=== PATIENT | female | born 1970 | race Caucasian/White ===

== ENCOUNTER → 2017-04-22 | Outpatient (CLI) | payer MEDICARE, MEDICAID ==
[~2017-04-22] MED LIST: B12INJ IM; CELEXA10 MG PO; ELIQUIS2.5 MG PO; FOLBIC RF TABL1 EACH PO; HYDROCHLOROTH12.5 M1 PO; HYDROCHLOROTHIA25 M2 PO; PERCOCET PO; ROXICODONE5 M2 PO; SENNA S TABLET1 EACH PO; SENNA8.6 MG PO; SINGULAIR 10 MG10 M1 PO; SYSTANE 0.3-0.1 EACH OPHTHALMIC; SYSTANE NIGHTT3.5 GM OPHTHALMIC; TRAMADOL HCL50 MG PO; VALIUM5 MG PO; VICODIN 5-3001 EACH PO; XANAX1 MG PO; ZYRTEC10 M5 PO
== END ==
LOC: M.LAB 15:42
DX: M25.452 Effusion, left hip (principal)

== ENCOUNTER → 2017-05-06 | Outpatient (CLI) | payer MEDICARE, MEDICAID | LOC: M.MRI 15:44 | DX: M25.852 Other specified joint disorders, left hip (principal); M12.852 Other specific arthropathies, not elsewhere classified, left hip ==

== ENCOUNTER → 2017-05-24 | Outpatient (CLI) | payer MEDICARE, MEDICAID ==
[2017-05-24 11:13] LABS: SOURCE LEFT HIP ASPIRATE
[2017-05-24 11:39] LABS: BF RBC 6184 /mm3; TOTAL CELL COUNT 2829 /mm3
[2017-05-24 11:40] LABS: CLARITY CLOUDY; COLOR AMBER; TOTAL VOLUME 10 ml
[2017-05-24 12:32] LABS: BF LYMPHOCYTES 79 %; BF POLYS 21 %
[2017-05-24 12:46] LABS: SOURCE ASCITES
[2017-05-25 13:08] LABS: BODY FLUID PROTEIN 3.2 g/dL (())
== END | disposition home or self-care (01) ==
LOC: M.RAD 08:39
PROVIDERS: Orthopaedic Surgery
DX: M25.552 Pain in left hip (principal); Z96.643 Presence of artificial hip joint, bilateral; Z88.8 Allergy status to other drugs, medicaments and biological substances; Z79.899 Other long term (current) drug therapy; Z79.891 Long term (current) use of opiate analgesic

== ENCOUNTER 2017-10-04 06:36 | Inpatient (IN) | payer MEDICARE, MEDICAID ==
[2017-09-23 15:34] LABS: ABSOLUTE BASOPHILS 0.1 thou/uL (0.0-0.2); ABSOLUTE EOSINOPHILS 0.1 thou/uL (0.0-0.7); ABSOLUTE LYMPHOCYTES 3.1 thou/uL (0.8-5.3); ABSOLUTE MONOCYTES 0.5 thou/uL (0.0-1.2); ABSOLUTE NEUTROPHILS 3.8 thou/uL (1.6-8.1); BASOPHILS 0.9 %; EOSINOPHILS 1.9 %; HEMATOCRIT 41.9 % (37.0-47.0); HEMOGLOBIN 14.3 gm/dL (12.0-15.0); LYMPHOCYTES 40.8 %; MCH 30.1 pg (26.0-34.0); MCHC 34.2 g/dL (28.0-37.0); MCV 88.1 fL (80.0-100.0); MONOCYTES 6.6 %; MPV 8.2 fl. (7.2-11.1); NUCLEATED RBCS 0 /100WBC; PLATELET COUNT* 248 thou/uL (150-400); POLYS 49.8 %; RBC 4.75 mil/uL (4.20-5.00); RDW-CV 13.4 % (10.5-14.5); WBC 7.6 thou/uL (4.0-11.0)
[2017-09-23 15:44] LABS: APTT 26.5 Seconds (25.0-31.3); PROTIME 10.2 Seconds (9.20-11.50)
[2017-09-23 15:55] LABS: CALCIUM 9.3 mg/dL (8.5-10.1); CREATININE 0.9 mg/dL (0.6-1.3); POTASSIUM 3.6 mmol/L (3.5-5.1)
[2017-09-23 16:02] LABS: ALBUMIN 3.9 g/dL (3.4-5.0); TOTAL BILIRUBIN 0.8 mg/dL (<0.1-1.0); TOTAL PROTEIN 6.8 g/dL (6.4-8.2)
[2017-09-23 16:56] LABS: ESR (SEDRATE) 12 mm/hr (0-20)
[2017-09-24 03:08] LABS: GLYCOHEMOGLOBIN (HGB A1C) 4.9 % (4.8-5.6)
--- NOTE | 2017-09-24 13:18 | EKG ---
[place] [address] ELECTROCARDIOGRAM REPORT Name: GONZALEZ GRANT Room: PRE IN [facility]#: [id number] Admission: Attend Phys: Armani Campos Discharge: Date of : 72 Report #: [id number] THIS REPORT FOR: //name// [facility] Test Date: 2017-09-23 Test Time: 15:36:42 Pat Name: GONZALEZ GRANT Department: Room: Gender: F Home Care Rn: NIURKA : 1970 Requested By: Chin Gaming Order Number: [id number] Reading MD: Sarabjit Alas Measurements Intervals [place] Rate: 77 P: 7 [place]: 164 QRS: 0 QRSD: 88 T: 5 QT: 399 QTc: 452 Interpretive Statements Sinus rhythm Low voltage, precordial leads No previous ECG available for comparison Electronically Signed On 09-24-2017 13:18:24 CDT by Sarabjit Alas [email or web address] <ELECTRONICALLY SIGNED> By: Sarabjit Alas MD, [facility] 09/24/17 1318 1536 1536 Sarabjit Alas MD, FACC /EPI
[~2017-10-04] VITALS: Ht 165.1 cm; Wt 90.7 kg
[~2017-10-04 06:36] MED LIST changes: -ELIQUIS2.5 MG PO; -ROXICODONE5 M2 PO; -SENNA S TABLET1 EACH PO; -SENNA8.6 MG PO; -TRAMADOL HCL50 MG PO
[2017-10-04 08:30] VITALS: BP 149/87
[2017-10-04 16:35] VITALS: BP 127/67
[2017-10-04 20:00] VITALS: BP 138/87
--- NOTE | 2017-10-04 20:23 | NUR ---
I ASSUMED CARE OF THE PATIENT AN ADMISSION POST OP AROUND 1300. SHE IS ALERT AND ORIENTED X4 AND IS ON BEDREST. SHE REFUSED TO DO THERAPY WITH PT UNTIL AFTER SHE TALKS TO DR SAXENA. HE TOLD HER NOT TO DO THERAPY, BUT THERE ARE ORDERS FOR IT (ACCORDING TO THE PATIENT). SHE HAS AN ABDUCTOR PILLOW. ISLAND DRESSING IS C/D/I ON THE LEFT HIP. PAIN IS HIGH AND BEING MANAGED WITH PRN MEDS. BED IS IN THE LOW LOCKED POSITION AND CALL LIGHT IS IN REACH. HOURLY ROUNDING WAS COMPLETED AND PATIENT NEEDS WERE MET. FORDE IS STILL IN PLACE. SHE HAS SCD'S AND MARIO HOSE ON. WILL CONTINUE TO MONITOR. CAPNO IS IN PLACE.
[2017-10-04 23:55] VITALS: BP 116/56
[2017-10-05 04:18] LABS: HEMOGLOBIN 12.6 gm/dL (12.0-15.0)
[2017-10-05 04:30] VITALS: BP 133/74
--- NOTE | 2017-10-05 05:54 | NUR ---
ASSUMED PT CARE. REPORT REECEIVED FROM NURSE. PT is alert AWAKE ORIENTD X 4. SHE IS ON THE BED LAYING WITH COMPLAINT OF PAIN IN THE LEFT HIP AREA. PRESSURE IS RELIEVED BY REPOSIIONNING NEEDED.OXY AND MORPHINE WERE GIVEN FRO PAIN FOR PAIN. SHE IS ON O2 NC AND HAS A CONTINUOUS PUL OX. IV LR RUNNING AT 7CC PER HOUR LR, IS AT BEDSIDE. HIP ABDUCTOR PILLOW MAINTAINED IN PLACE. PT LEGS ELEVATED ON PILLOW OT PORMOTE CIRCULLATION. HIGH TIGHT HOSE IN PLACE. . ON BEDREST FOR POST OP DAY 1. NO SIGN ANS SMPTONS OF ANXITE. WILL CONTINUE TO MONITOR
[2017-10-05 15:33] VITALS: BP 121/64
--- NOTE | 2017-10-05 15:38 | NUR ---
CM DID NOT SEE PT.THIS AFTERNOON. PT.VERY TEARFUL WHEN CM ENTERED ROOM. IV PUMP ALARMING. SHE SAID I CANNOT GET ANY REST. EVERY TIME I GET TO SLEEP,SOMETHING STARTS BEEPING, SOMEONE CALLS ME OR SOMEONE COMES INTO MY ROOM. APOLOGIZED. TOLD HER I WOULD SEE HER TOMORROW. TOLD NURSE ABOUT IV PUMP.
[2017-10-05 20:00] VITALS: BP 129/66
--- NOTE | 2017-10-05 20:23 | NUR ---
I ASSUMED CARE OF THE PATIENT AT 0700. SHE IS ALERT AND ORIENTED X4 AND IS UP WITH STAND BY ASSIST. BED IS IN THE LOW LOCKED POSITION AND CALL LIGHT IS IN REACH. SHE IS PLEASANT, BUT TEARFUL AND TIRED. PATIENT PAIN IS NOT MANAGED WITH PRN MEDS AND THEY HAVE BEEN READJUSTED. HOURLY ROUNDING WAS COMPLETED AND PATIENT NEEDS WERE MET. SHE DID WELL WITH TRANSFERS AND THERAPY. WILL CONTINUE TO MONITOR.
[2017-10-06] VITALS: BP 116/64
--- NOTE | 2017-10-06 01:36 | NUR ---
ASSUMED PT CARE REPORT RECEIVED FROM NURSE. PT IS ALERT AWAKE ORIENTED X 4. VITAL SIGNS WITHIN NORMAL LIMIT. ON 2 L NC SATURATION IS 99%. SHE COMPLAINS OF PAIN IN RIGHT HIP AREA. PT WAS SITTING IN CHAIR AT BEDSIDE AND DAUGHTER WAS IN THE ROOM. ASSESSMENT PERFORMED . MEDS ADMINSTERED SCHEDULED. PT REQUESTED OT GO BACK TO BED AND SOME ICEPACKS ON HER RIHGT HIP AND SOME PAIN KILLER. PAIN MED WAS ADMINISTERED , PT WAS PLACED BACK IN BED BEFORE EBEDTIME. AND ICE PACKS WERE APPLIED ON RIGHT HIP AREA. PT TOLORATED WELL. AT AROUND MIDNIHGT PT HAD A TEMP. SCHEDULED TRAMADOL ADMINSITERED ALONG WITH OTHER MIDNIGHT SCHEDULED MEDS. TYLENOL ADMINISTERED FOR A TEMP OF 101. 1 . PT IS SAFE. MARIO HOSE IN PLACE, HIP ABDUCTOR IN PLACE. HIP DRESSING IS DRY AND INTACT. COLACE WAS ADMINISTERED SCHEDULED . STILL NO RECORD OF BOWEL MVT. VENESSA CONTINUE TO MONITOR.
[2017-10-06 04:00] VITALS: BP 119/66
--- NOTE | 2017-10-06 06:26 | NUR ---
pt had a temp of 101.1 at midnight . tylenol was administered. temp decreased to 99.3. pt also complaint of left calf pain. positive for kilgore sign. resident saw pt this AM and order US of left calf
[2017-10-06 09:55] VITALS: BP 114/70
[2017-10-06 16:00] VITALS: BP 113/67
--- NOTE | 2017-10-06 17:36 | NUR ---
CALLED IN PRESCRIPTION WRITTEN FOR DIYA TO PT.'S PHARMACY. WILL CALL BACK IN AM FOR COPAY.
--- NOTE | 2017-10-06 18:20 | NUR ---
ASSUMED CARE OF PATIENT AFTER MORNING REPORT AT APPROX 0720. ALERT AND ORIENTED X4. ASSESSMENT COMPLETED AND CHARTED. VSS ON ROOM AIR. PATIENT HAS HAD COMPLAINTS OF PAIN FROM LEFT HIP AND MIGRAINES, BEING MANAGED WITH MEDICATIONS. SOME COMPLAINTS OF NAUSEA RELATED TO PAIN AND MIGRAINES. NO COMPLAINTS OF SOA THIS SHIFT. PATIENT IS UP WITH 1 TO BEDSIDE COMMODE, VOIDING WITHOUT DIFFICULTY. HIP PRECAUTIONS MAINTAINED. WORKING WELL WITH THERAPY TODAY. HOURLY ROUNDS MAINTAINED, CALL LIGHT WITHIN REACH, NURSING WILL CONTINUE TO MONITOR.
[2017-10-06 20:00] VITALS: BP 116/76
[2017-10-07 00:02] VITALS: BP 104/42
[2017-10-07 04:18] VITALS: BP 120/71
--- NOTE | 2017-10-07 07:13 | NUR ---
Alert and oriented x 4. L hip mepilex dressing dry and intact. She has had a migraine headache as well as L hip pain and she had a 1x dose of toradol and benadryl at bedtime and it helped. She has slept off and on. She is up to the bedside commode with assist x 1 and walker. Temp has been 99's. Tylenol given x 2 this shift and IS encouraged.
[2017-10-07 08:55] VITALS: BP 108/61
[2017-10-07 12:15] VITALS: BP 108/61
[2017-10-07] MEDS ORDERED: TRAMADOL HCL50 MG PO (12:31)
[2017-10-07] MEDS ORDERED: SENNA8.6 MG PO (12:32)
[2017-10-07] MEDS ORDERED: ROXICODONE5 M2 PO (12:33)
[2017-10-07] MEDS ORDERED: ELIQUIS2.5 MG PO (12:34)
--- NOTE | 2017-10-07 14:00 | NUR ---
PT.RESTING IN BED. INFORMED HER HER COPAY FOR DIYA AT HER PHARMACY IS $1.72. SHE HAS ORDERS FOR HOME WITH SELF CARE FROM ORTHO. SHE SAID HER S.O. WILL BE HOME LATE TONIGHT FROM WORK BUT HER SISTER IN LAW CAN STAY WITH HER IF SHE GOES HOME TONIGHT. HER S.O.WILL BE WITH HER ALL WEEKEND AT HOME. SHE SAID HER MIGRAINE IS BETTER. 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 SHE HAS A LOW GRADE TEMP. ENCOURAGED HER TO TRY TO GO HOME TODAY. THIS IS HER 3RD POST OP DAY. SHE WILL DISCUSS WITH HER NURSE AFTER THERAPY.
--- NOTE | 2017-10-07 16:07 | PATH ---
[address] [address] PATHOLOGY RPT PROCEDURE Name: MILDRED GRANT Room: [address] IN [facility]#: [id number] Admission: 10/04/17 Date of : 72 Discharge: Report #: [id number] Path Case #: [id number] [facility] Accession Number: [id number] . 01 Material submitted: . SYNOVITIS, LEFT HIP . 01 Clinical history: . (Per discussion with Dr. Gaming in operating room): Patient with prior bilateral hip replacements of "ctyqm-wb-hfbxm" around 2007. . 02 Diagnosis: "Synovitis left hip": - Benign fibrovascular connective tissue with foreign body-type granulomatous response in association with granular brownish-black pigment and non-birefringent foreign material typical of "metallosis", with less than 5 neutrophils per high power field on average. . (LOIS:denise; 10/06/17) [facility]/10/06/2017 . 02 Electronically signed: . Charlie Perez MD, Pathologist NPI- [id number] . 01 Gross description: . Received fresh from the operating room accompanied by a label marked "Mildred Grant, synovitis left hip", is a single fragment of red to delgadillo to partially cauterized tissue having greatest dimensions of 2.5 x 1[address] Gaming notes that intraoperatively, there are essentially expected findings without a suspicion of infection, but he requests intraoperative evaluation for the presence of neutrophils. The specimen is serially sectioned and surfaces are touch prepped and several cross sections are submitted for frozen studies with the remainder of those tissues frozen submitted in cassette A1. The remainder of the entire specimen is submitted in cassette A2. (LOIS:[facility]; 10/05/2017) . . INTRAOPERATIVE CONSULT (Charlie Perez M.D.) . Frozen Diagnosis with TouchPrep ("synovitis left hip"): - Benign fibrovascular connective tissue with foreign body type granulomatous response in association with granular brownish black pigment and foreign material, with less than 5 neutrophils per high [place] [address] PATHOLOGY RPT PROCEDURE Name: MILDRED GRANT Room: [address] IN ..#: [id number] Admission: 10/04/17 Date of : 72 Discharge: Report #: [id number] Path Case #: [id number] . Results are relayed directly to Dr. Gaming in the operating room and a note is entered into the medical record. . Frozen section performed at [facility], [address] [place] [address]. /TOB . 02 Microscopic: . Y . 02 Pathologist provided ICD-10: M65.88 . 02 CPT . 927786, [id number] Performed at: [address] [facility] [address], [place], [place] [id number] MD Jean Marie Campo MD Phone: [phone] Performed at: 02 [facility] [place] [address] [address] [place], [place] [id number] MD Charlie Perez MD Phone: [phone]
--- NOTE | 2017-10-07 16:36 | NUR ---
ASSUMED CARE OF PATIENT AFTER MORNING REPORT AT APPROX 0720. ALERT AND ORIENTED X4. ASSESSMENT COMPLETED AND CHARTED. VSS ON ROOM AIR. PATIENT HAS HAD NO COMPLAINTS OF SOA THIS SHIFT. PAIN AND NAUSEA HAVE BEEN BETTER THIS SHIFT AND HAVE BEEN MANAGED WITH MEDICATION. NO COMPLAINTS OF MIGRAINES THIS SHIFT. PATIENT HAS BEEN UP TO CHAIR AND BATHED TODAY. WORKING WELL WITH THERAPY BUT STILL HAS CONCERNS ABOUT GOING HOME THIS EVENING. PATIENT STATES THAT HER BOYFRIEND WILL NOT BE HOME UNTIL LATE TONIGHT AND SHE WOUL,D FEEL MORE COMFORTABLE GOING [place] IN THE MORNING WHEN HE IS AVAILABLE TO HELP HER GET INTO HER HOME. A PAGE WAS SENT TO DR MARQUEZ TO RELATE THIS INFORMATION. PATIENT RESTING COMFORTABLY IN BED AT TIS TIME. HOURLY ROUNDS MAINTAINED, CALL LIGHT WITHIN REACH, NURSING WILL CONTINUE TO MONITOR.
[2017-10-07 16:47] VITALS: BP 117/73
[2017-10-08 00:24] VITALS: BP 110/62
[2017-10-08 04:12] VITALS: BP 104/61
--- NOTE | 2017-10-08 06:49 | NUR ---
PATIENT HAS SLEPT WELL THROUGHOUT THE NIGHT WITHOUT ANY ISSUES. VSS ON RA, ALTHOUGH PULSE TACHY. PAIN WELL CONTROLLED WITH ORAL PAIN MEDICATION AND CHARTED. PATIENT REMAINS ON HIP PRECAUTIONS. DRESSING TO LEFT HIP IS C/D/I, AND WEDGE IN PLACE. IV IN LEFT AC-SL. PATIENT INSTRUCTED TO USE CALL LIGHT WHEN NEEDING ASSISTANCE. HOURLY ROUNDS MADE. WILL CONTINUE TO MONITOR.
[2017-10-08 08:00] VITALS: BP 113/69
--- NOTE | 2017-10-08 12:30 | NUR ---
DISCHARGE NOTE - PT DISCHARGED FROM JOINT/SPINE THIS AM. IV REMOVED WITHOUT DIFFICULTY. INSTRUCTIONS AND RX'S GIVEN TO PT/SPOUSE. NO QUESTIONS. ALL BELONGINGS SENT WITH PT.
--- NOTE | 2017-10-28 17:43 | OP ---
[address] [address] OPERATIVE REPORT Name: GONZALEZ GRANT Room: [address]#: [id number] Admission: 10/04/17 Attend Phys: Armani Campos Discharge: 10/08/17 Date of : 72 Report #: [id number] THIS REPORT FOR: //name// CC: Karen Barrera DICTATED BY: Pérez Quinn DO DATE OF SERVICE: 10/04/2017 PREOPERATIVE DIAGNOSIS: Painful left qapze-uf-gdclg total hip arthroplasty. POSTOPERATIVE DIAGNOSIS: Left total hip arthroplasty, significant metallosis with history of previous mqgow-db-rmwwu total hip arthroplasty. PROCEDURE: Revision left total hip arthroplasty with conversion to a dual mobility type hip with the following components. 1. Size 40 mm dual mobility Biomet head with -3 mm neck. SURGEON: Chin Gaming DO. NURSE CONSULTANT: Pérez Quinn DO and Hipolito Siddiqui DO. ANESTHESIA: General. ESTIMATED BLOOD LOSS: 350 mL. ANTIBIOTICS: 1.5 grams Ancef IV preoperatively. SPECIMENS: Culture of left hip trochanteric bursal fluid and surrounding tissue were sent for culture. Also sent to pathology for evaluation was left hip deep synovial tissue specimen. COMPLICATIONS: None. DISPOSITION: Stable to PACU and will be admitted to the hospital for standard postoperative care. INDICATION FOR PROCEDURE: The patient is a pleasant 47-year-old female with a complicated history in regards to her bilateral hips. She had left total hip arthroplasty in 2008, has continued to have pain with this, now that has worsened over the past year. She had significant workup for potential infection or complications due to the zmnwj-ak-yblad nature of the total hip arthroplasty. She also had a bone scan in regards to possible loosening of her left total hip components, which showed no significant uptake about [place] [address] OPERATIVE REPORT Name: GONZALEZ GRANT Room: [address]#: [id number] Admission: 10/04/17 Attend Phys: Armani Campos Discharge: 10/08/17 Date of : 72 Report #: [id number] synovial aspirate of her left total hip region. There were no concerns during the workup for infection. But, the patient continued to have significant pain and with it being a hibhp-fw-cmeeh total hip arthroplasty, there was possible concern for significant metallosis and failure contributing to the patient's pain. Therefore, we recommended revision total hip arthroplasty with likely conversion to a dual mobility type head system with possible need for revision of both acetabular and femoral components. Risks, benefits, complications, indications, alternative treatments were discussed and patient wished to proceed with surgery today. DESCRIPTION OF PROCEDURE: The patient was seen in preoperative holding area. Correct operative site, left hip was initialed. The patient was taken back to the operating suite, placed in supine position on the operating table, given benefit of general anesthetic. Was then positioned in the right lateral decubitus position with her left hip facing up and was held with pegs placed in the pegboard that was well padded. All bony prominences were well padded in the normal fashion. Left hip was then prepped and draped in typical fashion. Surgery began with a timeout, identifying correct patient, correct procedure, correct operative site, preoperative antibiotics and correct performing surgeon. Next, standard anterolateral type incision was made in a curvilinear fashion directly over the tip of the greater trochanter extending posteriorly proximally and in line with the shaft distally. Her old incision was used from her previous total hip arthroplasty. Skin was incised with 10 blade scalpel. Subcutaneous tissues were sharply incised down to the level of the fascia rylee. There is significant amount of scar tissue as to be expected. Fascia rylee was then incised in line with our incision and again a significant amount of scar tissue had formed in between the fascia rylee and gluteus medius tissue planes. This was dissected carefully to allow mobility of both her fascia rylee layers and the gluteus medius layer. Next, the roughly anterior third gluteus medius muscle was taken directly off the greater trochanter by electrocautery in a normal fashion also encompassing hip capsule within this layer, which was taken as an entire sleeve. This was retracted in the normal fashion. A significant amount of scar tissue and adhesions were noted surrounding the component, which were excised at this time. We took deep specimen of synovial type tissue that was sent for pathology evaluation. Hip was then able to be dislocated in normal fashion. Utilizing a bone tamp, the bfdoh-jm-vwzae head was able to be removed from the Dennis taper on the femoral component. Both the acetabular component and femoral component were inspected very closely and felt to be rather stable and moving as a unit with both the pelvis and femur respectively. Therefore, we elected to leave both the femoral and acetabular component at this point. Wound was thoroughly irrigated. We trialled a 40-mm dual mobility head construct with a -6 neck. This was felt to be rather stable, did have little bit of increased laxity, though was stressing in more of a lateral direction. Therefore, we elected to proceed with a -3 mm neck length and 40 mm dual mobility head. The final dual mobility head construct was [facility] [address] [place] [address] OPERATIVE REPORT Name: GONZALEZ GRANT Room: [address] IN M.R.#: [id number] Admission: 10/04/17 Attend Phys: Armani Campos Discharge: 10/08/17 Date of : 72 Report #: [id number] impacted on the Dennis taper in the femoral neck in normal fashion. Final reduction was performed at this time. Hip was taken through range of motion. The patient had full range of motion of her left hip with no concern for instability with external and internal rotation with hip flexion. The hip joint again was thoroughly irrigated at this point. Capsular type deep layer was closed with #1 Vicryl suture in a hpmvfw-gd-qcwgx fashion and sutured back to the greater trochanter with a #5 FiberWire in a mtpgdg-ce-dvcnm fashion. Gluteus medius tendon and the muscular layer were reattached to the gluteus medius with two 2.3 mm JuggerKnot Biomet. Suture anchors were placed in the normal fashion. Layer was then oversewn with a simple running #1 Vicryl suture. Fascia rylee was closed with a few #1 Vicryl sutures in a pndivd-ys-gvypx fashion, followed by running #1 Stratafix barbed suture. Subcutaneous tissues were closed in a simple inverted fashion with 2-0 Vicryl sutures followed by a running subcuticular 3-0 Stratafix suture and Dermabond skin glue. Standard dressings were applied consisting of Mepilex dressing. The patient was weaned from general anesthetic, transferred in stable condition to the PACU. All sponge and needle counts were correct x 2. <ELECTRONICALLY SIGNED> By: Chin Gaming DO 10/28/17 1743 1511 [id number] Gaming DO /nt
== END 2017-10-08 11:35 | disposition home or self-care (01) | DRG 468 ==
LOC: M.PRE 06:36 → M.TBA 07:07 → M.ORTHSURG 07:07 → M.PRE 08:57 → M.ORTHSURG 12:38 → M.PRE 14:22 → M.ORTHSURG 10-05 14:00
PROVIDERS: Orthopaedic Surgery; ADMIT Internal Medicine
PROC: 0SPB09Z Removal of Liner from Left Hip Joint, Open Approach (ICD-10-PCS; principal; 2017-10-04)
PROC: 0SUB09Z Supplement Left Hip Joint with Liner, Open Approach (ICD-10-PCS; principal; 2017-10-04)
DX: T84.84XA Pain due to internal orthopedic prosthetic devices, implants and grafts, initial encounter (principal); Y83.8 Other surgical procedures as the cause of abnormal reaction of the patient, or of later complication, without mention of misadventure at the time of the procedure; F41.9 Anxiety disorder, unspecified; G43.909 Migraine, unspecified, not intractable, without status migrainosus; F32.9 Major depressive disorder, single episode, unspecified; I10 Essential (primary) hypertension; M79.7 Fibromyalgia; Z90.49 Acquired absence of other specified parts of digestive tract; Z90.710 Acquired absence of both cervix and uterus; Z87.891 Personal history of nicotine dependence; Z79.899 Other long term (current) drug therapy; Y92.89 Other specified places as the place of occurrence of the external cause; Z88.8 Allergy status to other drugs, medicaments and biological substances

== ENCOUNTER 2017-12-15 15:41 | Inpatient (IN) | payer MEDICARE, MEDICAID ==
[~2017-12-15] VITALS: Ht 165.1 cm; Wt 93.0 kg
[~2017-12-15 15:41] MED LIST changes: +ELIQUIS2.5 MG PO; +ROXICODONE5 M2 PO; +SENNA8.6 MG PO; +TRAMADOL HCL50 MG PO
[2017-12-15 15:44] VITALS: BP 161/78
[2017-12-15 16:19] LABS: ABSOLUTE BASOPHILS 0.1 thou/uL (0.0-0.2); ABSOLUTE EOSINOPHILS 0.2 thou/uL (0.0-0.7); ABSOLUTE LYMPHOCYTES 3.4 thou/uL (0.8-5.3); ABSOLUTE MONOCYTES 0.6 thou/uL (0.0-1.2); ABSOLUTE NEUTROPHILS 4.4 thou/uL (1.6-8.1); BASOPHILS 1.2 %; EOSINOPHILS 2.1 %; HEMATOCRIT 45.2 % (37.0-47.0); HEMOGLOBIN 15.3 gm/dL (12.0-15.0); LYMPHOCYTES 38.4 %; MCH 29.8 pg (26.0-34.0); MCHC 33.9 g/dL (28.0-37.0); MCV 87.8 fL (80.0-100.0); MONOCYTES 7.4 %; MPV 8.2 fl. (7.2-11.1); NUCLEATED RBCS 0 /100WBC; PLATELET COUNT* 288 thou/uL (150-400); POLYS 50.9 %; RBC 5.14 mil/uL (4.20-5.00); RDW-CV 13.3 % (10.5-14.5); WBC 8.7 thou/uL (4.0-11.0)
[2017-12-15 16:26] LABS: CALCIUM 9.1 mg/dL (8.5-10.1); CREATININE 0.9 mg/dL (0.6-1.3); POTASSIUM 3.7 mmol/L (3.5-5.1)
[2017-12-15 16:27] LABS: APTT 24.6 Seconds (25.0-31.3); PROTIME 10.3 Seconds (9.20-11.50)
[2017-12-15 16:31] LABS: TOTAL BILIRUBIN 0.5 mg/dL (<0.1-1.0); TOTAL PROTEIN 7.5 g/dL (6.4-8.2)
--- NOTE | 2017-12-15 17:03 | NUR ---
PT UNDERWENT CONSCIOUS SEDATION FOR LEFT HIP CLOSED REDUCTION. SEE PAPER CHARTING FOR CONSENT AND VITAL SIGNS THROUGHOUT PROCEDURE AND POST-PROCEDURE.
[2017-12-15 17:31] VITALS: BP 134/80
[2017-12-15 17:45] VITALS: BP 163/108
--- NOTE | 2017-12-15 17:52 | NUR ---
SPOKE WITH [facility] AND THEY WILL BE OUT IN AM TO FIT PATIENT FOR ABDUCTION BRACE.
--- NOTE | 2017-12-15 18:49 | NUR ---
PATIENT CAME TO UNIT FROM ER AT 1755. A&OX4 ABDUCTOR WEDGE IN PLACE WITH KNEE IMMOBILIZER. VITALS STABLE. DENIES PAIN. ADMISSION HX AND ASSESSMENT CHARTED. DINNER PROVIDED. ORIENTED TO ROOM AND INVIRONMENT. CALL LIGHT WITHIN REACH. EDUCATED ON FALL PREVENTION. BED ALARM SET.
[2017-12-15 19:50] VITALS: BP 149/99
[2017-12-16] VITALS (8 sets, daily range): BP systolic 128–153; BP diastolic 76–83
--- NOTE | 2017-12-16 04:36 | NUR ---
PATIENT HAS REMAINED ALERT AND ORIENTED X 4 THROUHOUT THE SHIFT AND RESTING QUIETLY ON HOURLY ROUNDS. BEDREST. VOIDING PER BEDPAN WITH ADEQUATE OUTPUT. ABDUCTION WEDGE AND LEFT LE IMMOBILIZER HAVE BEEN MAINTAINED. DENIES NUMBNESS OF ANY EXTREMITY. 2+ PEDAL PULSES PRESENT BILAT. PAIN ADEQUATELY CONTROLLED WITH IV MEDICATION. VITAL SIGNS STABLE. TO HAVE LEFT HIP ABDUCTOR BRACE FITTING TODAY. CONTINUE TO MONITOR.
[2017-12-16] MEDS ORDERED: SENNA S TABLET1 EACH PO (11:24)
--- NOTE | 2017-12-16 14:30 | NUR ---
PT.SPOKE WITH TESS WITH A WASH CLOTH OVER HER EYES THE ENTIRE TIME. SAID SHE HAD A SEVERE MIGRAINE. DAUGHTER,SMITH, WHO IS ROOM WILL BE STAYING WITH HER BECAUSE PT.S SIG.OTHER IS OUT OF TOWN FOR WORK. SHE HAS A WALKER AT HOME THAT SHE WAS USING FROM HER SURGERY IN [place]. SHE DID NOT HAVE HOME HEALTH AFTER SURGERY IN [place]. HAS ORDERS FOR PT/OT AT DISCHARGE. SHE WOULD LIKE TO USE [facility] . SPOKE WITH JACKIE [phone] AND FAXED DISCHARGE SUMMARY,ORTHO CONSULT,PROCEDURE REPORT TO HER [phone]. PT.REQUESTED ABENA GARCIA, WHO IS AN OT THERE. WROTE THIS ON FAX COVER SHEET. TESS SPOKE WITH JERALD AT [phone] REGARDING ABDUCTION BRACE. HE SAID THEY SHOULD BE OUT BY 3:45. PT. AND NURSING INFORMED.PHYSICAL THERAPY WILL SEE PT.AFTER BRACE FITTED. CAN THEN BE DISCHARGED IF DOES WELL.
--- NOTE | 2017-12-16 18:45 | NUR ---
REVIEWED AND AGREE WITH ALL CHARTING AND ASSESSMENTS COMPLETED BY GAEL Art RN.
--- NOTE | 2017-12-16 18:57 | NUR ---
PT GIVEN DISCHARGE INFORMATION AND PRESCRIPTIONS GIVEN. IV REMOVED. PT BELONGINGS GATHERED. PT DENIED ANY FURTHER QUESTIONS RO CONCERNS AT THIS TIME. PT LEFT TO HOME CARE WITH FAMILY BY CAR.
--- NOTE | 2017-12-16 18:58 | NUR ---
PT BEING DISCHARGED, INFORMATION GIVEN AND PACKET SIGNED, AWAITING RIDE FROM FAMILY. PT ALERT AND ORIENTED. PT IS WBAT WITH BRACE ON. HOURLY ROUNDING COMPLETED. BED ALARM ON. WILL CONTINUE TO MONITOR.
--- NOTE | 2017-12-16 21:31 | NUR ---
PATIENT DISCHARGED THIS EVENING. NOT SURE IF DISCHARGE PAPERWORK WAS SENT WITH PATIENT. TECH AND FAMILY MEMBER HELPED PATIENT OUT WHEN NURSE WAS IN ROOM WITH ANOTHER PATIENT AT APPROXIMATELY 2029.
--- NOTE | 2017-12-17 09:20 | CON ---
[address] [address] CONSULTATION Name: GONZALEZ GRANT Room: [address] IN .R.#: [id number] Admission: 12/15/17 Attend Phys: Gala Madrid Discharge: 12/16/17 Date of : 72 Report #: [id number] THIS REPORT FOR: //name// CC: Yohan Guadalupe DICTATED BY: Pérez Quinn DO DATE OF SERVICE: 12/15/2017 CHIEF COMPLAINT: Left hip pain. HISTORY OF PRESENT ILLNESS: The patient is a pleasant 47-year-old female well known to our service who is roughly 10 weeks status post left total hip revision arthroplasty where she was converted from a wwynb-yj-gzxnl total hip to a dual mobility total hip construct and unfortunately presented this afternoon to [facility] ER with severe complaints of left hip pain after bending over and picking something up off the ground at home. When she attempted to bend over at the waist and picked this object up, she noted a popping type sensation from her left hip and immediate severe pain with inability to weightbear on her left lower extremity. Of note, she also notes a recent fall roughly 4 days ago from standing height where she landed directly on her bilateral knees. Since that time, has had some worsening left hip pain and right after that fall, she felt some popping sensations in her left hip, but was still able to weightbear and ambulate at that time, but since her most recent injury today, she has not been able to ambulate or put any sort of weight on her left lower extremity. When seen during our exam in the [facility] [place], she is in a rather intense pain to her left hip. Her left lower extremity is shortened in an externally rotated position consistent with an anterior superior left hip dislocation. She denies any numbness or tingling distally. Denies any radiating pain on her lower extremities. Denies any loss of bowel or bladder control. PAST MEDICAL HISTORY: Significant for anxiety, depression, hypertension, fibromyalgia, Ztth-Hjyyl-Sfibaqy disease, bilateral hips. PAST SURGICAL HISTORY: Significant for multiple attempted corrective surgeries to the bilateral hips during her childhood, appendectomy, tonsillectomy, cholecystectomy, tubal ligation, total hysterectomy, bilateral knee arthroscopy, bilateral shoulder arthroscopy with rotator cuff repairs, bilateral fvgey-bp-njkdd total hip arthroplasties around 2007, left total hip arthroplasty revision on 10/04/2017. SOCIAL HISTORY: Denies any smoking or illicit drug use. Reports [place] [address] CONSULTATION Name: GONZALEZ GRANT Room: [address]#: [id number] Admission: 12/15/17 Attend Phys: Gala Madrid Discharge: 12/16/17 Date of : 72 Report #: [id number] FAMILY HISTORY: Noncontributory. MEDICATIONS: Current reported home medications, Zyrtec, tramadol, senna, oxycodone, Eliquis, vitamin B12, Singulair, hydrochlorothiazide, Valium, Systane eyedrops. ALLERGIES: NAPROXEN, AMITRIPTYLINE, NSAIDs. REVIEW OF SYSTEMS: A 10-point review of systems was obtained and was negative other than the previously mentioned symptoms in HPI. PHYSICAL EXAMINATION: CONSTITUTIONAL: Vitals in the ER display O2 saturation 99% on room air, blood pressure 161/78, heart rate 98, respirations 16. GENERAL: The patient is alert and oriented x 3, pleasant, conversant, currently in no acute distress. EYES: Conjunctivae and sclerae are clear. No scleral icterus noted. Extraocular motion intact bilaterally. Pupils equal and round. HEENT: Head normocephalic, atraumatic. Ears, nose display normal external appearance, gross hearing intact bilaterally. NECK: Supple, nontender to palpation. No enlarged thyroid. Midline trachea. RESPIRATORY: Regular and unlabored respirations. Symmetric chest rise. CARDIOVASCULAR: Brisk capillary refill in all 4 extremities. ABDOMEN: Soft and nontender to palpation. SKIN: Warm, dry on palpation. No rashes or lesions noted on exposed skin. NEUROLOGIC: Gross motor and sensation intact in all 4 extremities. Cranial nerves 2-12 grossly intact. No focal deficits noted. MUSCULOSKELETAL: Examination of the left lower extremity displays a resting shortened and externally rotated position consistent with an anterior superior hip dislocation. She has significant pain with any attempted log roll or motion of her left lower extremities. She is able to flex and extend her great toe as well as dorsiflex and plantarflex her left ankle with some pain elicited. Gross motor and sensation intact distally. Brisk capillary refill noted distally. Calves are soft and nontender. IMAGING: Multiple views of the left hip, AP and lateral display anterior superior appearing left total hip dislocation. No acute fractures identified. IMPRESSION: Left total hip arthroplasty, anterior superior dislocation, roughly 10 weeks status post left revision total hip arthroplasty. RECOMMENDATIONS: At this time, we discussed treatment options with the patient. Currently, recommend an attempt of closed reduction of the left total hip arthroplasty with sedation provided by the Emergency Room physician. If we are successful with a closed reduction, we discussed that she will likely need to be in a hip abduction brace, which we will likely obtain from [facility] [address] [address] CONSULTATION Name: JUANITA,GONZALEZ Maria Alejandra Room: [address] IN M.R.#: [id number] Admission: 12/15/17 Attend Phys: Gala Madrid Discharge: 12/16/17 Date of : 72 Report #: [id number] tomorrow. In the meantime, she will be placed in an abduction pillow and a knee immobilizer. If we are unsuccessful obtaining a closed reduction, then she may need to be taken to the operative suite for full relaxation and possible closed reduction versus open reduction in the operating room. Risks, benefits, complications, indications and alternative treatments were discussed with the patient regarding the closed reduction, and she wished to proceed in the Emergency Room. After etomidate was provided for sedation by the Emergency Room physician, the pelvis was stabilized by an molding line assistant. Essentially longitudinal traction and internal rotation was performed to the left lower extremity and audible and palpable clunk was evident and the hip reduced rather easily. Hip was taken through range of motion not significantly stressed, but was moving smoothly and seemed to be concentrically reduced. We did obtain post-reduction portable x-rays in the Emergency Room, which confirmed concentric reduction of the left total hip both on the AP and lateral radiographs. The patient was placed in a knee immobilizer and abduction pillow. She will be admitted to the hospitalist service for overnight care, pain control and observation. We will go ahead and put an order in for left hip abduction brace. Hopefully, she will obtain this tomorrow, can maybe start getting up and mobilizing with physical therapy and possibly discharge home tomorrow afternoon. Thank you for allowing us to participate in the care of this patient. <ELECTRONICALLY SIGNED> By: Jsoiah Johnson DO 12/17/17 0920 1719 [id number] Johnson DO /nt
== END 2017-12-16 21:27 | disposition home health service (06) | DRG 537 ==
LOC: M.ERS 15:41 → M.ORTHSURG 16:49 → M.TBA-ER 16:49 → M.ORTHSURG 17:14
PROVIDERS: Family Medicine; ADMIT Internal Medicine
PROC: 0SSBXZZ Reposition Left Hip Joint, External Approach (ICD-10-PCS; principal; 2017-12-15)
DX: S73.035A Other anterior dislocation of left hip, initial encounter (principal); D68.59 Other primary thrombophilia; F41.9 Anxiety disorder, unspecified; Z96.643 Presence of artificial hip joint, bilateral; G89.29 Other chronic pain; F32.9 Major depressive disorder, single episode, unspecified; I10 Essential (primary) hypertension; Z90.49 Acquired absence of other specified parts of digestive tract; Z90.710 Acquired absence of both cervix and uterus; Z88.8 Allergy status to other drugs, medicaments and biological substances; Z87.891 Personal history of nicotine dependence; Z23 Encounter for immunization; X58.XXXA Exposure to other specified factors, initial encounter; Y93.89 Activity, other specified; Y92.89 Other specified places as the place of occurrence of the external cause; Y99.8 Other external cause status

== ENCOUNTER → 2019-01-09 | Outpatient (CLI) | payer MEDICARE, MEDICAID ==
[~2019-01-09] MED LIST changes: +SENNA S TABLET1 EACH PO
== END ==
LOC: M.CT 09:13
DX: S72.324A Nondisplaced transverse fracture of shaft of right femur, initial encounter for closed fracture (principal); Z98.890 Other specified postprocedural states; Z96.643 Presence of artificial hip joint, bilateral; X58.XXXA Exposure to other specified factors, initial encounter; Y93.89 Activity, other specified; Y92.89 Other specified places as the place of occurrence of the external cause; Y99.8 Other external cause status

== ENCOUNTER → 2019-02-02 | Outpatient (CLI) | payer MEDICARE, MEDICAID | LOC: M.RAD 12:59 | DX: M25.551 Pain in right hip (principal); M25.552 Pain in left hip; Z78.0 Asymptomatic menopausal state; Z96.642 Presence of left artificial hip joint; Z96.643 Presence of artificial hip joint, bilateral ==

== ENCOUNTER → 2019-02-23 | Outpatient (CLI) | payer MEDICARE, MEDICAID | LOC: M.LAB 10:37 | DX: M79.7 Fibromyalgia (principal) ==

== ENCOUNTER → 2019-03-13 | Outpatient (CLI) | payer MEDICARE, MEDICAID ==
[2019-03-13 08:11] LABS: ABSOLUTE BASOPHILS 0.1 thou/uL (0.0-0.2); ABSOLUTE EOSINOPHILS 0.1 thou/uL (0.0-0.7); ABSOLUTE LYMPHOCYTES 3.8 thou/uL (0.8-5.3); ABSOLUTE MONOCYTES 0.6 thou/uL (0.0-1.2); ABSOLUTE NEUTROPHILS 3.5 thou/uL (1.6-8.1); BASOPHILS 1.1 %; EOSINOPHILS 0.9 %; HEMATOCRIT 39.3 % (37.0-47.0); HEMOGLOBIN 13.8 gm/dL (12.0-15.0); LYMPHOCYTES 46.8 %; MCH 30.5 pg (26.0-34.0); MCV 87.1 fL (80.0-100.0); MONOCYTES 7.5 %; MPV 7.5 fl. (7.2-11.1); NUCLEATED RBCS 0 /100WBC; PLATELET COUNT* 259 thou/uL (150-400); POLYS 43.7 %; RBC 4.52 mil/uL (4.20-5.00); RDW-CV 13.2 % (10.5-14.5)
[2019-03-13 08:35] LABS: ALBUMIN 3.3 g/dL (3.4-5.0); CALCIUM 8.2 mg/dL (8.5-10.1); CREATININE 0.9 mg/dL (0.6-1.3); POTASSIUM 3.6 mmol/L (3.5-5.1); TOTAL BILIRUBIN 0.3 mg/dL (<0.1-1.0); TOTAL PROTEIN 6.5 g/dL (6.4-8.2)
[2019-03-15 12:09] LABS: GLOBULIN TOTAL 2.4 g/dL (2.2-3.9); M-SPIKE Not Observed g/dL (Not Observed)
== END ==
LOC: M.ULTRA 03-07 08:32
PROVIDERS: Internal Medicine Hematology & Oncology
DX: K76.0 Fatty (change of) liver, not elsewhere classified (principal); D75.1 Secondary polycythemia; G47.30 Sleep apnea, unspecified; R53.82 Chronic fatigue, unspecified; M79.7 Fibromyalgia; I10 Essential (primary) hypertension; G43.C0 Periodic headache syndromes in child or adult, not intractable

== ENCOUNTER → 2019-06-27 | Day surgery (SDC) | payer MEDICARE, MEDICAID ==
[~2019-06-27] MED LIST changes: +AIMOVIG AU140 MG/1 M SUBQ; +ALLERGY SHOT INJECTION; +BOTOX INJECTION; +CARDIZEM LA180 M1 PO; +FOLIC ACID0.8 M1 PO; +HYDROCODON-ACE1 EAC7 PO; +NORCO 5-325 TA1 EAC1 PO; +VITAMIN B-121000 MC2 SUBLING
[2019-06-27 07:29] LABS: CALCIUM 8.4 mg/dL (8.5-10.1); CREATININE 0.7 mg/dL (0.6-1.3); POTASSIUM 3.6 mmol/L (3.5-5.1)
--- NOTE | 2019-06-27 14:36 | EKG ---
[place] [address] ELECTROCARDIOGRAM REPORT Name: JUANITAGONZALEZ Toscano Room: [facility]#: [id number] Admission: 06/27/19 Attend Phys: Chin Gaming DO Discharge: Date of : 72 Date of Service: 06/27/19 0729 Report #: [id number] THIS REPORT FOR: //name// [facility] Test Date: 2019-06-27 Test Time: 07:29:11 Pat Name: GONZALEZ GRANT Department: Room: Gender: Foreclosure Specialist: : 1970 Requested By: Chin Gaming Order Number: [id number] Ruth MD: Ishaan Lyon Measurements Intervals [place] Rate: 77 P: 3 KS: 169 QRS: -6 QRSD: 82 T: 28 QT: 391 QTc: 443 Interpretive Statements Sinus rhythm Low voltage, precordial leads Compared to ECG 09/23/2017 15:36:42 No significant changes Electronically Signed On 06-27-2019 14:34:35 CDT by Ishaan Lyon [email or web address] <ELECTRONICALLY SIGNED> By: Ishaan Lyon MD, [facility] 06/27/19 1434 8 8 Ishaan Lyon MD, [facility] /EPI
--- NOTE | 2019-07-03 10:20 | OP ---
[address] [address] OPERATIVE REPORT Name: GONZALEZ GRANT Room: [facility]#: [id number] Admission: 06/27/19 Attend Phys: Chin Gaming DO Discharge: Date of : 72 Report #: [id number] THIS REPORT FOR: //name// cc: Yohan Varela MD, Dean L. MD ~ THIS REPORT FOR: //name// CC: Yohan Gaming DICTATED BY: Clyde Snyder DO DATE OF SERVICE: 06/27/2019 PREOPERATIVE DIAGNOSIS: Right femoral stress fracture with a stable and intact right total hip prosthesis. POSTOPERATIVE DIAGNOSIS: Right femoral stress fracture with a stable and intact right total hip prosthesis. PROCEDURE PERFORMED: Percutaneous injection of bone autograft with autologous PRP to the right femur. ANESTHESIA: General. ESTIMATED BLOOD LOSS: Minimal. COMPLICATIONS: None. CONDITION: Stable to PACU. SPECIMENS: None. SURGEON: Chin Gaming DO CHEMICAL DEPENDENCY ATTENDANT: Clyde Snyder DO ANESTHESIA: General. IMPLANTS: Beta-BSM injectable bone graft substitute with autologous PRP. INDICATIONS FOR PROCEDURE: The patient is a pleasant 48-year-old female who underwent bilateral total hip arthroplasty several years ago. Over the last several years, she has developed insidious right femur pain. Recent imaging has demonstrated evidence of a stress fracture of the lateral cortex. A CT scan was obtained, which demonstrated an incomplete stress fracture of the lateral cortex [place] [address] [address] OPERATIVE REPORT Name: GONZALEZ GRANT Room: [facility]#: [id number] Admission: 06/27/19 Attend Phys: Chin Gaming DO Discharge: Date of : 72 Report #: [id number] with reactive cortical bone. We discussed further treatment options with the patient including bone grafting. The patient had tried and failed conservative care including a period of protected weightbearing and limited activity. Due to the continued nature of her symptoms and affect in her quality of life I have recommended further intervention with grafting of the right femur. We discussed risks, benefits, complications, alternatives with the patient. Risks include but are not limited to bleeding, infection, DVT/PE, continued thigh pain, nonunion, propagation of the fracture, failure of the total hip prosthesis, need for revision total hip arthroplasty, myositis ossificans/heterotopic ossification, need for repeat surgery or complications of anesthesia including even . The patient expressed understanding and wished to proceed with the procedure. DESCRIPTION OF PROCEDURE: The patient was transferred to the operating suite and placed on the operating table in supine position. She was given the benefit of general anesthesia. The right thigh was then prepped and draped in the usual sterile fashion. A timeout was taken to confirm the appropriate patient identification, operative site and procedure to be performed. All in the room were in agreement with the timeout. Blood was obtained through IV access in order to spin down to the PRP. C-arm imaging was then brought in and x-ray was taken of the femur. The stress fracture was localized on the image intensifier. The site for injection was subsequently marked. The bone graft was then mixed on the back table. A K-wire was then used to perforate the lateral cortex to allow for injection of our bone graft and PRP. After the cement was mixed, the PRP was added to the syringe and mixed. The C-arm was again utilized to localize our needle site. The tip of our needle was positioned in appropriate position at the fracture site and into the site of perforation from the K-wire. The bone graft substitute/PRP mixture was then injected into the lateral aspect of the femur. Some of the injection was also injected along the anterior and posterior aspects of the femoral cortices. Another C-arm image was obtained, which demonstrated appropriate positioning of her bone graft substitute. There was noted to be some substitute within the soft tissue, which was expected in order to allow for the bone graft substitute to obtain access to the lateral anterior and posterior cortices. Hemostasis was noted. Sterile dressing was applied. Final anterior and posterior radiographs of the femur were obtained and again demonstrated appropriate positioning of our bone graft without any evidence of complications. The patient was transferred to PACU in stable condition. <ELECTRONICALLY SIGNED> By: Chin Gaming DO 07/03/19 1020 0907 [id number] Gaming DO /nt
== END | disposition home or self-care (01) ==
LOC: M.SUR 06:17
PROVIDERS: Orthopaedic Surgery
DX: M84.351A Stress fracture, right femur, initial encounter for fracture (principal); M79.651 Pain in right thigh; Z96.643 Presence of artificial hip joint, bilateral; Z98.890 Other specified postprocedural states; Z79.899 Other long term (current) drug therapy
CPT/HCPCS: 0232T

== ENCOUNTER → 2019-08-23 | Outpatient (CLI) | payer MEDICARE, MEDICAID | LOC: M.MRI 13:15 | PROVIDERS: ATTEND Orthopaedic Surgery | DX: M25.551 Pain in right hip (principal); Z96.641 Presence of right artificial hip joint ==

== ENCOUNTER 2019-10-29 12:08 | Emergency (ER) | payer MEDICARE, MEDICAID ==
[~2019-10-29] VITALS: Ht 165.1 cm; Wt 96.2 kg
[2019-10-29] MEDS ORDERED: NORCO 5-325 TA1 EAC2 PO (14:13)
[2019-10-29 14:40] VITALS: BP 148/88
== END 2019-10-29 14:40 | disposition home or self-care (01) ==
LOC: M.ERS 12:08
DX: M84.359A Stress fracture, hip, unspecified, initial encounter for fracture (principal); M79.7 Fibromyalgia; I10 Essential (primary) hypertension; Z96.642 Presence of left artificial hip joint; Z90.49 Acquired absence of other specified parts of digestive tract; Z90.89 Acquired absence of other organs; Z98.51 Tubal ligation status; Z88.6 Allergy status to analgesic agent; Z88.8 Allergy status to other drugs, medicaments and biological substances; Z90.710 Acquired absence of both cervix and uterus; X50.9XXA Other and unspecified overexertion or strenuous movements or postures, initial encounter; Y93.89 Activity, other specified; Y92.89 Other specified places as the place of occurrence of the external cause; Y99.8 Other external cause status

== ENCOUNTER → 2019-11-16 | Outpatient (CLI) | payer MEDICARE, MEDICAID ==
[~2019-11-16] MED LIST changes: +NORCO 5-325 TA1 EAC2 PO
== END ==
LOC: M.MRI 11-14 13:20
PROVIDERS: ATTEND Orthopaedic Surgery
DX: M80.851D Other osteoporosis with current pathological fracture, right femur, subsequent encounter for fracture with routine healing (principal); Z96.643 Presence of artificial hip joint, bilateral; Z98.890 Other specified postprocedural states

== ENCOUNTER → 2020-06-20 | Outpatient (CLI) | payer MEDICARE, MEDICAID | LOC: M.MRI 14:05 | PROVIDERS: ATTEND Orthopaedic Surgery | DX: M16.0 Bilateral primary osteoarthritis of hip (principal); Z48.89 Encounter for other specified surgical aftercare; Z96.642 Presence of left artificial hip joint ==